=== PATIENT | female | born 1995 | race Caucasian/White ===

== ENCOUNTER 2024-08-29 08:40 | Emergency (ER) | payer MEDICAID ==
[~2024-08-29] VITALS: Ht 167.6 cm; Wt 65.8 kg
[~2024-08-29 08:40] MED LIST: PREN1TAB80 PO
[2024-08-29 08:42] VITALS: TEMP 98.5
--- NOTE | 2024-08-29 08:47 | NUR ---
PT JUST NOW PLACED IN MY ED BED 9
--- NOTE | 2024-08-29 09:08 | ERN ---
General Chief Complaint: Headache Stated Complaint: HEADACHE, DIZZINESSX 3 MONTHS Time Seen by MD: 08:44 History of Present Illness Initial Comments 29-year-old female, otherwise healthy, presents for dizziness for the last few months. She reports that she is irregular in her menstrual cycle, her last menstrual cycle was possibly a few months ago. She took a home test which was positive. She reports that she has been feeling dizziness especially with standing quickly over the last couple of months. No syncope. She has a mild headache at times. No nausea or vomiting diarrhea dysuria vaginal bleeding or discharge. She does report some occasional pelvic cramping. with three live births without complications. No OB care currently. No chest pain, dyspnea, or fevers. Allergies: Coded Allergies: No Allergy Information Available (Verified Allergy, Unknown, 01/10/17) No Known Allergies (Unverified Allergy, Unknown, 06/22/18) Home Meds Reported Medications Vits W-Ca,Fe,FA(<1Mg) ( Vitamins) 1 Each Tablet, 1 EACH PO HS, TAB 06/22/18 Past Medical History Past Medical History: No Pertinent History Past Surgical History: None Female( History) : 4 Para: 3 ROS Dictation CONSTITUTIONAL: No chills, no fever, no weakness, no diaphoresis, no malaise. HEAD/FACE: No signs of trauma. EENT: No eye pain, no blurred vision, no tearing, no double vision, no ear pain, no ear discharge, no nose pain, no nasal congestion, no throat pain, no throat swelling, no mouth pain. RESPIRATORY: No cough, no orthopnea, no SOB, no stridor, no wheezing. CARDIOVASCULAR: No chest pain, no edema, no palpitations, no syncope. GASTROINTESTINAL/ABDOMINAL: No abdominal pain, no constipation, no diarrhea, no nausea, no vomiting. GENITOURINARY: Occasional pelvic cramping MUSCULOSKELETAL: No back pain, no gout, no joint pain, no joint swelling, no muscle pain, no muscle stiffness, no neck pain. INTEGUMENTARY: No change in color, no change in hair/nails, no dryness, no lesion, no lumps, no rash. NEUROLOGICAL/PSYCH: Dizziness occasional headaches HEMATOLOGIC/LYMPHATIC: Not anemic, no history of blood clots, no apparent bleeding, no bruising, glands not swollen. All Systems Negative, Except as Noted. Physical Exam Physical Exam Dictation VITAL SIGNS: Reviewed. GENERAL APPEARANCE: Alert, oriented x3, no acute distress HEAD AND FACE: Non-traumatic. EYES: PERRL, pink conjunctivas, eyelid no trauma, anterior chamber clear. EARS: Pinnas intact and no signs of trauma or erythema. Ear canals clear and no discharge. TMs no erythema. NOSE: No discharge, no bleeding. OROPHARYNX: Mouth normal, teeth no caries, tongue pink. Pharynx clear, no erythema. Tonsils no exudates, no abscesses noted. Mucous membrane moist. NECK: Supple, non-tender, no thyromegaly, no masses, no JVD, no bruits. BREAST: Deferred. CHEST: No tenderness, no crepitus, no paradoxical movement, no retractions. LUNGS: Clear, well-ventilated, symmetric, no rales, no wheezing, no rhonchi, no stridor, good breath sounds bilaterally. HEART: Regular rate, regular rhythm, no murmur, no gallops. VASCULAR: No peripheral edema. ABDOMEN: Soft, positive bowel sounds, nondistended, no guarding, nontender, no rebound, no masses no hepatomegaly, no splenomegaly, no Wick's sign, no hernias. RECTAL: Deferred. GENITAL: Deferred. NEUROLOGICAL: Normal speech, gross motor function intact, gross sensory function intact. MUSCULOSKELETAL: Neck nontender, full range of motion, back nontender, full range of motion. EXTREMITIES: Nontender, full range of motion. SKIN: Color pink, dry, no turgor, no rash, no lacerations, no abrasions, no contusions. LYMPHATICS: Deferred. Results Laboratory and Microbiology Lab and Micro Result Laboratory Tests Test 08/29/24 08:51 08/29/24 09:30 Urine Color LIGHT-YELLOW (YELLOW) Urine Appearance CLEAR (CLEAR) Urine pH 6.5 (5.0-8.0) Urine Specific [place] 1.017 (1.001-1.031) Urine Protein NEGATIVE mg/dL (NEGATIVE) Urine Glucose (UA) NEGATIVE mg/dL (NEGATIVE) Urine Ketones NEGATIVE mg/dL (NEGATIVE) Urine Occult Blood NEGATIVE (NEGATIVE) Urine Nitrate NEGATIVE (NEGATIVE) Urine Bilirubin NEGATIVE mg/dL (NEGATIVE) Urine Urobilinogen 0.2 mg/dL (0.2-1.0) Urine Leukocyte Esterase NEGATIVE [place]/uL White Blood Count 8.3 K/uL (4.8-10.8) Red Blood Count 4.02 MIL/uL (4.00-5.50) Hemoglobin 12.0 g/dL (12.0-16.0) Hematocrit 34.7 % (36-48) L Mean Corpuscular Volume 86.3 fL (79-99) Mean Corpuscular Hemoglobin 29.9 pg (27.0-33.0) Mean Corpuscular Hemoglobin Concent 34.6 g/dL (32.0-36.0) Red Cell Distribution Width 13.4 % (11.0-15.5) Platelet Count 290 K/uL (130-400) Mean Platelet Volume 8.2 fL (7.5-10.5) Immature Granulocyte % (Auto) 1.3 % (0-1) H Neutrophils (%) (Auto) 65.3 % (40.0-77.0) Lymphocytes (%) (Auto) 24.9 % (21.0-51.0) Monocytes (%) (Auto) 5.4 % (3.0-13.0) Eosinophils (%) (Auto) 2.5 % (0.0-8.0) Basophils (%) (Auto) 0.6 % (0.0-5.0) Neutrophils # (Auto) 5.4 K/uL (1.8-7.7) Lymphocytes # (Auto) 2.1 K/uL (1.0-4.8) Monocytes # (Auto) 0.5 K/uL (0.1-1.0) Eosinophils # (Auto) 0.21 K/uL (0.00-0.70) Basophils # (Auto) 0.05 K/uL (0.00-0.20) Absolute Immature Granulocyte (auto 0.11 K/uL (0-1) Nucleated Red Blood Cells 0.0 % (0.0-0.19) Sodium Level 140 mmol/L (136-145) Potassium Level 3.5 mmol/L (3.5-5.1) Chloride Level 103 mmol/L (101-111) Carbon Dioxide Level 27 mmol/L (21-32) Blood Urea Nitrogen 8 mg/dL (7-18) Creatinine 0.6 mg/dL (0.5-1.0) Glomerular Filtration Rate Calc 125 mL/min (>90) Random Glucose 88 mg/dL (70-105) Total Calcium 9.0 mg/dL (8.5-10.1) Total Bilirubin 0.2 mg/dL (0.2-1.0) Direct Bilirubin < 0.1 mg/dL (0.0-0.3) Aspartate Amino Transf (AST/SGOT) 9 U/L (10-37) L Alanine Aminotransferase (ALT/SGPT) 14 U/L (12-78) Alkaline Phosphatase 74 U/L (50-136) Total Protein 7.1 g/dL (6.0-8.3) Albumin 3.0 g/dL (3.5-5.0) L Human Chorionic Gonadotropin, Quant 64924 mIU/mL (0-5) H MDM CC: Headache and dizziness for the last few months. Reports she was possibly . LMP three or four months ago. Historian: Patient Comorbidities: Denies Vital signs are stable Differential diagnosis: type symptoms, electrolyte abnormalities, hypertension, other. Vital signs normal Clinical exam is unremarkable. Labs independently ordered interpreted by me: CBC normal, BNP normal, urinalysis normal. Ultrasound pelvis/ OB (independently interpreted by me ): Intrauterine , 19 weeks. No acute abnormalities at this time. Symptoms likely due to the . No concerns. We will DC to OB follow up. REASON: lower abd pain ORDERING PHYSICIAN: RAJNI LAGUNA DO PROCEDURE: OB >14 - US OB >14 WEEKS US OB >14 WEEKS REASON: lower abd pain COMPARISON: None TECHNIQUE: Routine OB sonogram was performed. FINDINGS: There is a single fetus in cephalic presentation with positive motion and heartbeat, 160 BPM. Composite gestational age is 19 weeks 1 day. Placenta is posterior and grade 1 with DIO 10 cm. Estimated weight is 275 g. anatomy appears unremarkable. IMPRESSION: 1. Single fetus cephalic presentation 19 weeks 1 day composite gestational age. ED Course Orders Procedure Category Date Status Time Cbc With Differential LAB 08/29/24 Complete : Basic Metabolic Panel LAB 08/29/24 Complete 09: Hcg,Quantitative LAB 08/29/24 Complete 09: Urinalysis Profile LAB 08/29/24 Complete 09: Hepatic Function Panel LAB 08/29/24 Complete 09: Us Ob >14 Weeks US 08/29/24 Resulted 09:01 Vital Signs Date Time Temp Pulse Resp B/P (MAP) Pulse Ox O2 Delivery O2 Flow Rate FiO2 08/29/24 10:53 88 14 119/57 Room Air* 0 21 08/29/24 08:42 98.4 90 16 109/70 100 Room Air 0 DX & DISP Disposition: Discharge Departure Impression: Primary Impression: Early stage of Additional Impression: Dizziness Condition: Stable Additional Instructions: There are no dangerous findings on your workup here today. The ultrasound shows a single intrauterine dated 19 weeks and one day with normal appearing anatomy and a heart rate of 160 beats per minute. Your lab work ( CBC, BMP, liver enzymes, urinalysis) is stable. I recommend that you follow up with an athletic turf worker. You can try doctor Rosa Maria Corrigan in [place]. Referrals: JOHN GUILLEN MD (PCP) RAJNI LAGUNA DO Aug 29, 2024 09:07
--- NOTE | 2024-08-29 09:10 | NUR ---
PT CURRENTLY EN ROUTE TO RADIOLOGY W/TRANSPORTER AMBULATING.
--- NOTE | 2024-08-29 09:21 | NUR ---
PT JUST RETURNED FROM RADIOLOGY
[2024-08-29 09:23] LABS: APPEARANCE,URINE CLEAR (CLEAR); BILIRUBIN,URINE NEGATIVE (NEGATIVE); COLOR,URINE LIGHT-YELLOW (YELLOW); GLUCOSE, URINE (UA) NEGATIVE (NEGATIVE); KETONES,URINE NEGATIVE (NEGATIVE); LEUKOCYTE ESTERASE ,URINE NEGATIVE Leu/uL (NEGATIVE); NITRATE,URINE NEGATIVE (NEGATIVE); OCCULT BLOOD,URINE NEGATIVE (NEGATIVE); PH,URINE 6.5 (5.0-8.0); PROTEIN,URINE NEGATIVE (NEGATIVE); UROBILINOGEN,URINE 0.2 mg/dL (0.2-1.0)
[2024-08-29 09:32] LABS: ADD UA MICROSCOPIC NO
[2024-08-29 09:38] LABS: BASOPHILS # (AUTO) 0.05 K/uL (0.00-0.20); BASOPHILS % (AUTO) 0.6 % (0.0-5.0); EOSINOPHILS # (AUTO) 0.21 K/uL (0.00-0.70); EOSINOPHILS % (AUTO) 2.5 % (0.0-8.0); HEMATOCRIT 34.7 % (36-48); IMMATURE GRANULOCYTE ABSOLUTE 0.11 K/uL (0-1); LYMPHOCYTES # (AUTO) 2.1 K/uL (1.0-4.8); LYMPHOCYTES % (AUTO) 24.9 % (21.0-51.0); MEAN CORPUSCULAR HEMOGLOBIN 29.9 pg (27.0-33.0); MEAN CORPUSCULAR HGB CONC 34.6 g/dL (32.0-36.0); MEAN CORPUSCULAR VOLUME 86.3 fL (79-99); MONOCYTES # (AUTO) 0.5 K/uL (0.1-1.0); MONOCYTES % (AUTO) 5.4 % (3.0-13.0); NEUTROPHILS # (AUTO) 5.4 K/uL (1.8-7.7); NEUTROPHILS % (AUTO) 65.3 % (40.0-77.0); PLATELET COUNT (AUTO) 290 K/uL (130-400); RED BLOOD CELL COUNT(AUTO) 4.02 MIL/uL (4.00-5.50); RED CELL DISTRIBUTION WIDTH 13.4 % (11.0-15.5); WHITE BLOOD COUNT (AUTO) 8.3 K/uL (4.8-10.8)
[2024-08-29 09:51] LABS: CARBON DIOXIDE 27 mmol/L (21-32); CHLORIDE 103 mmol/L (101-111); CREATININE 0.6 mg/dL (0.5-1.0); GLOMERULAR FILTR. RATE CALC 125 mL/min (>90); GLUCOSE,RANDOM 88 mg/dL (70-105); POTASSIUM 3.5 mmol/L (3.5-5.1); SODIUM SERUM 140 mmol/L (136-145); UREA NITROGEN, BLOOD 8 mg/dL (7-18)
--- NOTE | 2024-08-29 10:15 | NUR ---
STILL PENDING SOME LAB RESULTS FOR DISPO
[2024-08-29 10:17] LABS: ALANINE AMINOTRANSFERASE 14 U/L (12-78); ASPARTATE AMINOTRANSFERASE 9 U/L (10-37); BILIRUBIN,TOTAL 0.2 mg/dL (0.2-1.0); HCG,QUANTITATIVE 22503 mIU/mL (0-5); TOTAL PROTEIN, SERUM 7.1 g/dL (6.0-8.3)
--- NOTE | 2024-08-29 10:22 | HMCIMG ---
US OB >14 WEEKS REASON: lower abd pain COMPARISON: None TECHNIQUE: Routine OB sonogram was performed. FINDINGS: There is a single fetus in cephalic presentation with positive motion and heartbeat, 160 BPM. Composite gestational age is 19 weeks 1 day. Placenta is posterior and grade 1 with DIO 10 cm. Estimated weight is 275 g. anatomy appears unremarkable. IMPRESSION: 1. Single fetus cephalic presentation 19 weeks 1 day composite gestational age.
[2024-08-29 10:53] VITALS: BP 119/57; PULSE 88; RESP 14
[2024-08-29 10:57] LABS: BILIRUBIN,DIRECT < 0.1 mg/dL (0.0-0.3)
--- NOTE | 2024-08-29 11:06 | NUR ---
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
== END 2024-08-29 11:07 | disposition home or self-care (01) ==
LOC: EDH 08:40
DX: O26.892 Other specified pregnancy related conditions, second trimester (principal); R42 Dizziness and giddiness; R10.2 Pelvic and perineal pain; Z3A.19 19 weeks gestation of pregnancy
CPT/HCPCS: 36415; 76805; 80048; 80076; 81003; 84702; 85025; 99284